=== PATIENT | female | born 1930 | race Caucasian/White ===

== ENCOUNTER → 2016-05-07 | Outpatient (CLI) | payer OTHER ==
[~2016-05-07] MED LIST: ASPEC81 PO; ATOR-24 PO; CALCTAB5 PO; CZR50 PO; FRS/40 PO; METO50TA16 PO; MULT-506 PO; NXM/40 PO; TRAM-10 PO; XNX25 PO; ZNTT/150 PO
== END | disposition home or self-care (01) ==
LOC: C.LABPVFM 13:58
PROVIDERS: ATTEND Nurse Practitioner
DX: L65.9 Nonscarring hair loss, unspecified (principal)

== ENCOUNTER → 2016-06-25 | Outpatient (CLI) | payer OTHER ==
[2016-06-25 12:51] LABS: BLOOD UREA NITROGEN 18 mg/dl (7-18); BUN/CREATININE RATIO 16.2 (10-20); CALCIUM 9.7 mg/dl (8.5-10.1); CARBON DIOXIDE 30 mmol/L (21-32); CHLORIDE 106 mmol/L (98-107); GLUCOSE 98 mg/dl (70-99); POTASSIUM 4.3 mmol/L (3.5-5.1); SODIUM 141 mmol/L (136-145)
== END | disposition home or self-care (01) ==
LOC: C.LABPVFM 10:04
PROVIDERS: ATTEND Nurse Practitioner
DX: M54.5 Low back pain (principal); I10 Essential (primary) hypertension

== ENCOUNTER → 2017-01-01 | Outpatient (CLI) | payer OTHER ==
[2017-01-01 13:13] LABS: BLOOD UREA NITROGEN 15 mg/dl (7-18); BUN/CREATININE RATIO 13.5 (10-20); CALCIUM 9.6 mg/dl (8.5-10.1); CARBON DIOXIDE 27 mmol/L (21-32); CHLORIDE 106 mmol/L (98-107); GLUCOSE 94 mg/dl (70-99); SODIUM 140 mmol/L (136-145)
[2017-01-01 13:16] LABS: CHOLESTEROL 156 mg/dl (0-200); CHOLESTEROL/HDL RATIO 2.1; HDL CHOLESTEROL 75 mg/dl; LDL CHOLESTEROL CALCULATED 56 mg/dl; TRIGLYCERIDES 125 mg/dl (0-150); VERY LOW DENSITY LIPOPROT CALC 25 mg/dl
== END | disposition home or self-care (01) ==
LOC: C.LABPVFM 08:04
PROVIDERS: ATTEND Nurse Practitioner
DX: E78.5 Hyperlipidemia, unspecified (principal); I10 Essential (primary) hypertension

== ENCOUNTER → 2017-05-19 | Outpatient (CLI) | payer OTHER ==
[~2017-05-19] MED LIST changes: +RANI150T85 PO; -ZNTT/150 PO
[2017-05-19 12:22] LABS: BASO % 0.5 %; BASO ABS # 0.04 K/uL (0-0.2); EOS % 6.8 %; EOS ABS # 0.55 K/uL (0-0.5); HEMATOCRIT 36.8 % (37-47); IG# 0.01 K/uL (0.00-0.02); LYMPH % 23.1 %; LYMPH ABS # 1.87 K/uL (1.2-3.4); MEAN CELL VOLUME 101.1 fL (80-100); MEAN CORPUSCULAR HGB CONC 32.6 g/dl (32-36); MEAN PLATELET VOLUME 10.2 fL (7.4-10.4); MONO % 10.6 %; MONO ABS # 0.86 K/uL (0.11-0.59); NEUT % 58.9 %; NEUT ABS # 4.78 K/uL (1.4-6.5); PLATELET COUNT 323 K/uL (130-400); RED CELL DISTRIBUTION WIDTH CV 12.8 % (11.5-14.5); RED CELL DISTRIBUTION WIDTH SD 47.4 fL (36.4-46.3); WHITE BLOOD COUNT 8.11 K/uL (4.8-10.8)
[2017-05-19 13:13] LABS: BLOOD UREA NITROGEN 15 mg/dl (7-18); CALCIUM 9.9 mg/dl (8.5-10.1); CARBON DIOXIDE 27 mmol/L (21-32); CREATININE 0.97 mg/dl (0.60-1.20); GLUCOSE 100 mg/dl (70-99); SODIUM 136 mmol/L (136-145)
== END | disposition home or self-care (01) ==
LOC: C.LABPVFM 10:12
PROVIDERS: ATTEND Nurse Practitioner
DX: R42 Dizziness and giddiness (principal); D64.9 Anemia, unspecified; J01.10 Acute frontal sinusitis, unspecified; E78.5 Hyperlipidemia, unspecified; I10 Essential (primary) hypertension